=== PATIENT | male | born 1970 | race Two or more races ===

== ENCOUNTER → 2017-03-05 | Day surgery (SDC) | payer OTHER ==
[~2017-03-05] MED LIST: LIDOCAINE 1% 30 ML SDV ONE
== END | disposition home or self-care (01) ==
LOC: FIMAGING 12:17
PROVIDERS: ATTEND Internal Medicine Nephrology
PROC: 03PY33Z Removal of Infusion Device from Upper Artery, Percutaneous Approach (ICD-10-PCS; principal; 2017-03-05)
DX: Z49.01 Encounter for fitting and adjustment of extracorporeal dialysis catheter (principal)
CPT/HCPCS: 36589; C1769

== ENCOUNTER 2017-06-18 09:41 | Day surgery (SDC) | payer OTHER ==
[2017-06-18] MEDS ORDERED: FLUMAZENIL 0.5 MG/5 ML MDV IVP ONE (10:41)
[2017-06-18] MEDS ORDERED: NALOXONE HCL 0.4 MG/ML INJ ONE (10:41)
[2017-06-18] MEDS ORDERED: fentaNYL 100 MCG/2 ML INJ ONE (10:42)
[2017-06-18] MEDS ORDERED: MIDAZOLAM 2 MG/2 ML VIAL ONE (10:42)
[2017-06-18] MEDS ORDERED: HEPARIN 10,000 UNIT/10 ML MDV ONE (11:35)
[2017-06-18] MEDS ORDERED: IOPAMIDOL (ISOVUE-300) 100 ML BTL ONE (11:42)
[2017-06-18] MEDS ORDERED: ACETAMINOPHEN 325 MG TAB PO PRN (12:34)
[2017-06-18 12:47] VITALS: TEMP 98.1
[2017-06-18 13:02] VITALS: BP 147/91
[2017-06-18 13:16] VITALS: RESP 18; O2SAT 93
== END 2017-06-18 15:00 | disposition home or self-care (01) ==
LOC: FIMAGING 09:41
PROVIDERS: ATTEND Internal Medicine Nephrology
PROC: 057F3ZZ Dilation of Left Cephalic Vein, Percutaneous Approach (ICD-10-PCS; principal; 2017-06-18 12:13)
DX: T82.858A Stenosis of other vascular prosthetic devices, implants and grafts, initial encounter (principal); N18.6 End stage renal disease
CPT/HCPCS: C1725; C1758; C1769; C1894; J1644; J2250; J2310; J3010; Q9967

== ENCOUNTER → 2017-09-25 | Outpatient (CLI) | payer OTHER | LOC: FIMAGING 12:49 | PROVIDERS: ATTEND Internal Medicine Nephrology | DX: I70.213 Atherosclerosis of native arteries of extremities with intermittent claudication, bilateral legs (principal) ==

== ENCOUNTER → 2018-04-29 | Day surgery (SDC) | payer OTHER ==
[~2018-04-29] MED LIST changes: +IOPAMIDOL (ISOVUE-300) 100 ML BTL ONE; -LIDOCAINE 1% 30 ML SDV ONE
--- NOTE | 2018-04-29 13:24 | PDGENHP ---
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 Presents with high pressures c/w recurrent stenosis. Relevant Physical Exam: +thrill. stepoff across previously treated segment. Cardiorespiratory Assessment: rrr, nl wob
--- NOTE | 2018-04-29 14:08 | PDRADPN ---
Radiology Procedure Note Date of Procedure: 04/29/18 Radiologist: Barry Lance Anesthesia: Local (Specify) Pre-op Diagnosis: cephalic stenosis Post-op Diagnosis: same Indication: high pressures at HD Procedure: fistulagram with venoplasty Finding(s): 1. 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 2. new moderate stenosis of high upper arm cephalic vein treated with 6mm platy, good result. 3. normal reflux run and anastamosis. Inf/Abcess present in the surg proc area at time of surgery?: No EBL: Minimal Complications: none
== END | disposition home or self-care (01) ==
LOC: FIMAGING 12:51
PROVIDERS: ATTEND Internal Medicine Nephrology
PROC: 057F3ZZ Dilation of Left Cephalic Vein, Percutaneous Approach (ICD-10-PCS; principal; 2018-04-29)
DX: I87.1 Compression of vein (principal)
CPT/HCPCS: 36902; C1769; C1894; C1725; J1644; Q9967